=== PATIENT | female | born 1985 | race Two or more races ===

== ENCOUNTER 2017-03-07 19:06 | Observation (INO) | payer MEDICAID ==
[~2017-03-07 19:06] MED LIST: FERR325T PO; PREN-96 OR
== END 2017-03-07 20:48 | disposition home or self-care (01) | DRG 566 ==
LOC: LDRP 19:06
PROVIDERS: ADMIT Obstetrics & Gynecology; ATTEND Obstetrics & Gynecology
DX: O24.419 Gestational diabetes mellitus in pregnancy, unspecified control (principal); Z87.891 Personal history of nicotine dependence; Z3A.29 29 weeks gestation of pregnancy
CPT/HCPCS: 59025; 76818; 81002; G0378

== ENCOUNTER 2017-03-11 10:15 | Observation (INO) | payer MEDICAID | END 2017-03-11 11:55 | disposition home or self-care (01) | DRG 566 | LOC: LDRP 10:15 | PROVIDERS: ADMIT Specialist; ATTEND Specialist | DX: O24.419 Gestational diabetes mellitus in pregnancy, unspecified control (principal); Z3A.30 30 weeks gestation of pregnancy | CPT/HCPCS: 59025; 76818; 81002; 82948; G0378 ==

== ENCOUNTER 2017-03-21 12:00 | Observation (INO) | payer MEDICAID | END 2017-03-21 13:25 | disposition home or self-care (01) | DRG 566 | LOC: LDRP 12:00 | PROVIDERS: ADMIT Obstetrics & Gynecology; ATTEND Obstetrics & Gynecology | DX: O24.813 Other pre-existing diabetes mellitus in pregnancy, third trimester (principal); Z3A.31 31 weeks gestation of pregnancy | CPT/HCPCS: 59025; 76818; 81002; G0378 ==

== ENCOUNTER 2017-03-25 20:00 | Observation (INO) | payer MEDICAID | END 2017-03-25 21:34 | disposition home or self-care (01) | DRG 566 | LOC: LDRP 20:00 | PROVIDERS: ADMIT Specialist; ATTEND Specialist | DX: O26.893 Other specified pregnancy related conditions, third trimester (principal); Z3A.32 32 weeks gestation of pregnancy | CPT/HCPCS: 59025; 76818; 81002; G0378 ==

== ENCOUNTER 2017-04-01 20:01 | Observation (INO) | payer MEDICAID | END 2017-04-01 21:26 | disposition home or self-care (01) | DRG 566 | LOC: LDRP 20:01 | PROVIDERS: ADMIT Obstetrics & Gynecology; ATTEND Obstetrics & Gynecology | DX: O26.893 Other specified pregnancy related conditions, third trimester (principal); Z3A.33 33 weeks gestation of pregnancy | CPT/HCPCS: 59025; 76818; 81002; 82962; G0378 ==

== ENCOUNTER 2017-04-04 19:22 | Observation (INO) | payer MEDICAID | END 2017-04-04 20:48 | disposition home or self-care (01) | DRG 566 | LOC: LDRP 19:22 | PROVIDERS: ADMIT Specialist; ATTEND Specialist | DX: O24.410 Gestational diabetes mellitus in pregnancy, diet controlled (principal); Z3A.33 33 weeks gestation of pregnancy | CPT/HCPCS: 59025; 76818; 81002; 82948; 82962; G0378 ==

== ENCOUNTER 2017-04-15 19:02 | Observation (INO) | payer MEDICAID | END 2017-04-15 20:32 | disposition home or self-care (01) | DRG 566 | LOC: LDRP 19:02 | PROVIDERS: ADMIT Obstetrics & Gynecology; ATTEND Obstetrics & Gynecology | DX: O24.419 Gestational diabetes mellitus in pregnancy, unspecified control (principal); Z3A.35 35 weeks gestation of pregnancy | CPT/HCPCS: 59025; 76818; 81002; 82962; G0378 ==

== ENCOUNTER 2017-04-18 19:07 | Observation (INO) | payer MEDICAID | END 2017-04-18 20:52 | disposition home or self-care (01) | DRG 566 | LOC: LDRP 19:07 | PROVIDERS: ADMIT Specialist; ATTEND Specialist | DX: O24.419 Gestational diabetes mellitus in pregnancy, unspecified control (principal); Z87.891 Personal history of nicotine dependence; Z3A.35 35 weeks gestation of pregnancy | CPT/HCPCS: 59025; 76818; 81002; 82962; G0378 ==

== ENCOUNTER 2017-04-30 12:55 | Observation (INO) | payer MEDICAID | END 2017-04-30 14:45 | disposition home or self-care (01) | DRG 566 | LOC: LDRP 12:55 | PROVIDERS: ADMIT Specialist; ATTEND Specialist | DX: O24.419 Gestational diabetes mellitus in pregnancy, unspecified control (principal); Z3A.37 37 weeks gestation of pregnancy | CPT/HCPCS: 59025; 76818; 81002; 82962; G0378 ==

== ENCOUNTER 2017-05-02 14:43 | Observation (INO) | payer MEDICAID | END 2017-05-02 16:15 | disposition home or self-care (01) | DRG 566 | LOC: LDRP 14:43 | PROVIDERS: ADMIT Specialist; ATTEND Specialist | DX: O24.419 Gestational diabetes mellitus in pregnancy, unspecified control (principal); Z3A.37 37 weeks gestation of pregnancy | CPT/HCPCS: 59025; 76818; 81002; 82962; G0378 ==

== ENCOUNTER 2017-05-06 19:14 | Observation (INO) | payer MEDICAID | END 2017-05-06 20:25 | disposition home or self-care (01) | DRG 566 | LOC: LDRP 19:14 | PROVIDERS: ADMIT Obstetrics & Gynecology; ATTEND Obstetrics & Gynecology | DX: O24.419 Gestational diabetes mellitus in pregnancy, unspecified control (principal); Z87.891 Personal history of nicotine dependence; Z3A.38 38 weeks gestation of pregnancy | CPT/HCPCS: 59025; 76818; 81002; 82962; G0378 ==

== ENCOUNTER 2017-05-10 14:50 | Observation (INO) | payer MEDICAID | END 2017-05-10 16:05 | disposition home or self-care (01) | DRG 566 | LOC: LDRP 14:50 | PROVIDERS: ADMIT Obstetrics & Gynecology; ATTEND Obstetrics & Gynecology | DX: O24.419 Gestational diabetes mellitus in pregnancy, unspecified control (principal); Z3A.38 38 weeks gestation of pregnancy | CPT/HCPCS: 59025; 76818; 81002; 82948; 82962; G0378 ==

== ENCOUNTER 2017-05-12 13:09 | Observation (INO) | payer MEDICAID ==
[2017-05-12] MEDS ORDERED: TERBUTALINE SULFATE 1 MG/ML 1ML VIAL SC ONE (19:27)
[2017-05-13] MEDS ORDERED: GLYB5TAB8 BC (15:28)
[2017-05-13] MEDS ORDERED: GLYB2.5T76 PO (15:28)
== END 2017-05-12 15:00 | disposition home or self-care (01) | DRG 566 ==
LOC: LDRP 13:09
PROVIDERS: ADMIT Specialist; ATTEND Specialist
DX: O24.419 Gestational diabetes mellitus in pregnancy, unspecified control (principal); Z87.891 Personal history of nicotine dependence; Z3A.38 38 weeks gestation of pregnancy
CPT/HCPCS: 59025; 76818; 81002; 82962; G0378; J3105

== ENCOUNTER 2017-05-13 14:11 | Inpatient (IN) | payer MEDICAID ==
[~2017-05-13] VITALS: Ht 1 cm; Wt 0.5 kg
[2017-05-13] MEDS ORDERED: LACTATED RINGER'S 1,000 ML IV SCH (15:04)
[2017-05-13] MEDS ORDERED: LACT. RINGERS/OXYTOCIN 20UNITS 1,000 ML IV SCH (15:04)
[2017-05-13] MEDS ORDERED: LIDOCAINE 1% HCL (LOCAL ANESTH.) INJ 20ML MDV IJ ONE (15:15)
[2017-05-13] MEDS ORDERED: DERMOPLAST 60ML BOTTLE TOP PRN (15:15)
[2017-05-13] MEDS ORDERED: CARBOPROST TROMETHAMINE 250 MCG/1ML VIAL IM PRN (15:15)
[2017-05-13] MEDS ORDERED: LIDOCAINE 2%HCL (LOCAL ANESTH.) INJ 20ML MDV IJ ONE (15:15)
[2017-05-13] MEDS ORDERED: WITCH HAZEL-GLYCERIN PAD TOP PRN (15:15)
[2017-05-13] MEDS ORDERED: NALBUPHINE HCL 10 MG/1ml INJECTION IV PRN (15:15)
[2017-05-13] MEDS ORDERED: PHISODERM TOP SOLN 240ML BTL TOP PRN (15:15)
[2017-05-13] MEDS ORDERED: METHYLERGONOVINE MALEATE 0.2 MG/ML AMP IM PRN (15:15)
[2017-05-13] MEDS ORDERED: GLYB5TAB8 BC (15:28)
[2017-05-13] MEDS ORDERED: GLYB2.5T76 PO (15:28)
[2017-05-13] MEDS ORDERED: D5W/SOD CHLO 0.9% 1,000 ML IV SCH (15:45)
[2017-05-13 15:46] LABS: Basophils # (auto) 0.1 uL; Basophils % (auto) 0.7 % (0.0-2.0); CONDITION Y; Eosinophils # (auto) 0.1 uL; Eosinophils % (auto) 0.8 % (0.0-7.0); Hematocrit 37.5 % (36.0-46.0); Hemoglobin 12.8 g/dL (12.2-16.2); Lymphocytes # (auto) 1.6 uL; Mean Corpuscular Hemoglobin 31.7 pg (28.0-32.0); Mean Corpuscular Volume 93.3 fL (80.0-100.0); Mean Platelet Volume 9.3 fL (7.4-10.4); Monocytes # (auto) 0.6 uL; Monocytes % (auto) 5.6 % (0.0-12.0); Neutrophils # (auto) 8.5 uL; Neutrophils % (auto) 77.9 % (37.0-80.0); Platelet Count (auto) 295 10^3/uL (140-450); Red Cell Distribution Width 14.9 % (11.6-16.0); White Blood Cell 10.9 10^3/uL (4.4-10.8)
[2017-05-13 16:06] LABS: Albumin 2.7 g/dL (3.4-5.0); BUN/Creatinine Ratio 16.2; Bilirubin, Total 0.2 mg/dL (0.2-1.0); Calcium 9.4 mg/dL (8.5-10.1); INR 0.87 (0.9-1.15); Partial Thromboplastin Time 26.4 sec (22.64-33.71); Potassium 4.1 mmol/L (3.5-5.1); Prothrombin Time 9.5 sec (9.37-12.3); Total Protein 7.7 g/dL (6.4-8.2)
[2017-05-13] MEDS: D5W/LACTATED RINGERS 1,000 ML IV SCH (16:08)
[2017-05-13 16:30] LABS: Urine Bilirubin Negative (Negative); Urine Color Yellow (Yellow); Urine Glucose Normal (Normal); Urine Ketone Negative (Negative); Urine Nitrite Negative (Negative); Urine RBC 3 /hpf (0 - 4); Urine Squamous Epithelial Cell FEW /hpf (<5); Urine Urobilinogen Normal (Negative); Urine pH 6.5 (5.0-8.0)
[2017-05-13 16:42] LABS: Urine Blood 1+ /uL (Negative)
[2017-05-13] MEDS ORDERED: LIDOCAINE HCL 2 %PF INJ 10ML AMP IJ ONE (17:30)
[2017-05-13] MEDS ORDERED: fentaNYL CITRATE 100 MCG/2 ML VL IV ONE ×2 (17:30→19:30)
[2017-05-13] MEDS ORDERED: ePHEDrine SULFATE 50 MG/ML AMP IV ONE ×2 (17:30→19:30)
[2017-05-13] MEDS ORDERED: NALOXONE HCL 0.4 MG/ML VIAL IV ONE ×2 (17:30→19:30)
[2017-05-13] MEDS ORDERED: fentaNYL W ROPIVACAINE 150 ML EPI SCH ×2 (17:30→19:30)
[2017-05-13] MEDS: ACCU-CHEK COMFORT CURVE STRIP VI SCH ×2 (18:30→20:30)
[2017-05-13] MEDS ORDERED: SODIUM CHLORIDE 0.9% 500 ML IV PRN (19:26)
[2017-05-14] MEDS: D5W/LACTATED RINGERS 1,000 ML IV SCH (00:15)
[2017-05-14] MEDS ORDERED: RHO (D) IMMUNE GLOBULIN 300 MCG INJ IM ONE (00:30)
[2017-05-14] MEDS: IBUPROFEN 600 MG TAB PO PRN ×6 (01:42→23:41)
[2017-05-14 07:15] VITALS: BP 122/71
[2017-05-14] MEDS: DOCUSATE CALCIUM 240 MG CAP PO SCH (10:00)
[2017-05-14 11:30] VITALS: BP 104/64
[2017-05-14] MEDS: ACCU-CHEK COMFORT CURVE STRIP VI SCH ×3 (11:55→23:33)
[2017-05-14 16:20] VITALS: BP 130/72
[2017-05-14 19:30] VITALS: BP 125/61
[2017-05-14] MEDS ORDERED: ACETAMINOPHEN/CODEINE#3 (300/30mg) TAB PO ONE (21:45)
[2017-05-14 23:43] VITALS: BP 118/61
[2017-05-15] MEDS: IBUPROFEN 600 MG TAB PO PRN ×3 (02:50→10:18)
[2017-05-15 03:45] VITALS: BP 114/71
[2017-05-15] MEDS: ACCU-CHEK COMFORT CURVE STRIP VI SCH ×2 (05:32→14:31)
[2017-05-15 07:30] VITALS: BP 107/71
[2017-05-15] MEDS: DOCUSATE CALCIUM 240 MG CAP PO SCH (10:18)
[2017-05-15 11:51] VITALS: BP 111/74
== END 2017-05-15 15:10 | disposition home or self-care (01) | DRG 560 ==
LOC: OBSVTOIN 14:11 → LDRP 14:11
PROVIDERS: ADMIT Specialist; ATTEND Specialist
PROC: 3E0S3CZ (ICD-10-PCS; principal; 2017-05-14)
PROC: 10E0XZZ Delivery of Products of Conception, External Approach (ICD-10-PCS; 2017-05-14)
PROC: 00HU33Z Insertion of Infusion Device into Spinal Canal, Percutaneous Approach (ICD-10-PCS; 2017-05-14)
DX: O42.92 Full-term premature rupture of membranes, unspecified as to length of time between rupture and onset of labor (principal); O24.429 Gestational diabetes mellitus in childbirth, unspecified control; Z37.0 Single live birth; O69.81X0 Labor and delivery complicated by cord around neck, without compression, not applicable or unspecified; Z3A.39 39 weeks gestation of pregnancy; Z91.040 Latex allergy status; Z88.0 Allergy status to penicillin
CPT/HCPCS: 36415; 59025; 59409; 62282; 80053; 80307; 81001; 81002; 82947; 82948; 82962; 85025; 85610; 85730; 86850; 86900; 86901; 96361; 96365; 96366; J2590; J3010